=== PATIENT | female | born 1975 | race Caucasian/White ===

== ENCOUNTER 2017-08-03 20:16 | Emergency (ER) | payer BC, MEDICAID ==
[2017-08-03] MEDS: KETOROLAC 60 MG INJ IM (21:45)
== END 2017-08-03 23:07 | disposition home or self-care (01) ==
LOC: FTE 20:16
DX: G43.909 Migraine, unspecified, not intractable, without status migrainosus (principal)
CPT/HCPCS: 70450; 96372; 99285-25